=== PATIENT | female | born 1950 | race Caucasian/White ===

== ENCOUNTER 2023-07-31 12:24 | Outpatient (CLI) | payer MEDICARE | END 2023-07-31 12:25 | disposition home or self-care (01) | LOC: SCSMRI 12:24 | PROVIDERS: ATTEND Nurse Practitioner Family | DX: M54.6 Pain in thoracic spine (principal); M47.814 Spondylosis without myelopathy or radiculopathy, thoracic region | CPT/HCPCS: 72146 ==

== ENCOUNTER 2024-01-26 11:25 | Outpatient (CLI) | payer MEDICARE | END 2024-01-26 11:26 | disposition home or self-care (01) | LOC: SCSMRI 11:25 | PROVIDERS: ATTEND Orthopaedic Surgery | DX: M75.112 Incomplete rotator cuff tear or rupture of left shoulder, not specified as traumatic (principal); M48.02 Spinal stenosis, cervical region; S43.432A Superior glenoid labrum lesion of left shoulder, initial encounter; S46.912A Strain of unspecified muscle, fascia and tendon at shoulder and upper arm level, left arm, initial encounter; M75.102 Unspecified rotator cuff tear or rupture of left shoulder, not specified as traumatic; M50.322 Other cervical disc degeneration at C5-C6 level; M50.323 Other cervical disc degeneration at C6-C7 level | CPT/HCPCS: 72141 ==